=== PATIENT | male | born 1955 | race Caucasian/White ===

== ENCOUNTER 2025-04-19 22:03 | Emergency (ER) | payer MEDICARE, OTHER, SELFPAY ==
[2025-04-19 22:06] VITALS: BP 151/81
[2025-04-19 22:21] VITALS: BP 143/73
[2025-04-19 22:29] VITALS: BMI 27.6
[2025-04-19 22:29] LABS: Hematocrit 47.5 % (39.0-52.0); Hemoglobin 15.4 g/dL (13.0-18.0); Mean Corp Hgb Conc. 32.4 g/dL (33.0-37.0); Mean Corpuscular Volume 90.5 fL (80.0-94.0); Nucleated Red Blood Cells % 0 % (-); Platelet Count 344 10^3/uL (130-400); Red Cell Dist. Width 13.1 % (11.5-14.5)
--- NOTE | 2025-04-19 22:33 | EDRN ---
Pt went to bed and could feel his heart beating fast and felt it was skipping beats. Pt reports palpitations since he was a child but they are not regular. Pt with similar episode like tonight 1-2 years ago and did not seek evaluation. Pt says he
feels fine now but sometimes he feels his heart skips a beat. No recent medication change, increase alcohol or caffeine. Pt had a cup of coffee tonight which he does every Sunday. No cp, sob, abd pain, n/v, weakness, dizziness, fever/chills/cough.
[2025-04-19 22:43] LABS: ALT (SGPT) 21 U/L (0-50); AST (SGOT) 24 U/L (17-59); Albumin 4.4 g/dl (3.5-5.0); Alkaline Phosphatase 87 U/L (38-126); Blood Urea Nitrogen 26 mg/dl (9-20); Calcium 9.7 mg/dl (8.4-10.2); Carbon Dioxide 25 mmol/L (22-30); Chloride 104 mmol/L (98-107); Estimated Creatinine Clearance 70 ml/min; Glucose 117 mg/dl (70-99); Potassium 4.1 mmol/L (3.5-5.1); Sodium 134 mmol/L (135-145); Total Protein 7.2 g/dl (6.3-8.2); eGFR > 60.00
[2025-04-19 22:54] LABS: Troponin I < 0.012 ng/ml
[2025-04-19 23:00] VITALS: BP 128/73
--- NOTE | 2025-04-19 23:26 | ED.GENMED ---
History of Present Illness
General
Chief Complaint: Heart Rate Problem
Source: patient
Exam Limitations: none
Time Seen by Provider: 04/19/25 23:11
History of Present Illness
History of Present Illness:
See MDM
Past History
Past History
ED Past Medical History: HTN, Hypercholesterolemia and NIDDM
ED Past Surgical History: Orthopedic
Social History
Tobacco: Non-smoker
Phy Exam
Physical Exam
Physical Exam:
See MDM
Course
Orders/Labs/Results
Orders:
Orders
04/19/25 22:11
Electrocardiogram (*1) Urgent
Reason for Study: Chest Pain
Cardiac Monitoring- Treatment ONCE
EKG- Treatment ONCE
04/19/25 22:23
Complete Blood Count/With Diff Urgent
Comprehensive Metabolic Panel Urgent
Troponin I Urgent
Abnormal Lab Results
04/19/25
22:23
WBC 12.1 H 10^3/uL
(4.8-10.8)
MCHC 32.4 L g/dL
(33.0-37.0)
Abs Immat Gran (auto) 0.1 H 10^3/uL
(0-0.05)
Absolute Neuts (auto) 7.1 H 10^3/uL
(1.4-6.5)
Absolute Monos (auto) 1.3 H 10^3/uL
(0.1-0.6)
Monocytes % 10.5 H %
(1.7-9.3)
Sodium 134 L mmol/L
(135-145)
BUN 26 H mg/dl
(9-20)
Glucose 117 H mg/dl
(70-99)
04/19/25 22:23
04/19/25 22:23
Vital Signs
Initial and Last Documented VS:
Initial Vital Signs
Temp Pulse Resp BP Pulse Ox
97.7 F 98 20 151/81 99
04/19/25 22:06 04/19/25 22:06 04/19/25 22:06 04/19/25 22:06 04/19/25 22:06
Last Documented Vital Signs
Temp Pulse Resp BP Pulse Ox
97.7 F 88 17 128/73 97
04/19/25 22:06 04/19/25 23:00 04/19/25 23:00 04/19/25 23:00 04/19/25 23:00
MDM/Problems Addressed
Differential Diagnosis Includes:
Note:
CHIEF COMPLAINT(S)
Heart palpitations.
HISTORY OF PRESENT ILLNESS
The patient is a 69-year-old male with a history of diabetes, hypertension, and hypercholesterolemia on medication, who presents with heart palpitations. He reports experiencing irregular heartbeat sensations while lying in bed, with episodes
lasting for a few days. The patient has had similar episodes in the past, which have not been definitively diagnosed. He previously saw a transactional paralegal years ago for palpitations and had a cardiac catheterization in 1995, which revealed congenital
anatomical variations but was deemed normal. He currently denies any increased caffeine intake or use of new medications. While in the emergency department, the patient has returned to normal sinus rhythm, and his blood work and electrocardiogram
are normal. The provider discussed the potential presence of atrial fibrillation or premature ventricular contractions, with explanations about stroke risks associated with untreated atrial fibrillation.
PAST MEDICAL AND SURGICAL HISTORY
- Previous congenital heart defect diagnosed as benign.
- Diabetes, hypertension, hypercholesterolemia under medication.
- Cardiac catheterization in 1995.
PHYSICAL EXAM
General: Alert, no acute distress.
Skin: Warm, dry.
Head: Normocephalic, atraumatic
Neck: Appears supple, trachea midline.
Eyes, Ears, Nose, Mouth, and Throat: Moist mucous membranes
Cardiovascular: No signs of cyanosis. Regular rate and rhythm
Respiratory: Respirations are non-labored. Lungs clear
Abdomen: Non-distended
Musculoskeletal: No deformities. No leg edema
Neurological: No focal neurological deficit observed.
Psychiatric: Cooperative, appropriate mood and affect.
SUMMARY OF ENCOUNTER
The patient was seen for concerns of heart palpitations with a primary focus on determining the presence of atrial fibrillation or premature ventricular contractions. The evaluation showed normal lab work and electrocardiogram results. The
discussion included the concept of possible paroxysmal atrial fibrillation and the risks associated with uncontrolled atrial fibrillation. The patient was advised on monitoring options and follow-up plans with his primary care physician and possibly
a transactional paralegal for further evaluation with a Holter monitor.
FOLLOW-UP INSTRUCTIONS
The patient was advised to follow up with his primary care physician to discuss further evaluation with a Holter monitor. He was also given the contact information for a transactional paralegal should he require specialist evaluation.
PATIENT EDUCATION AND COUNSELING
The patient was educated on symptoms of atrial fibrillation, associated risks (especially stroke), and the importance of monitoring his symptoms. The potential need for anticoagulation was discussed, contingent upon further diagnostic confirmation.
He was informed about potential symptoms to report and was encouraged to seek medical evaluation in case of recurrent or persistent palpitations.
MEDICATION RECONCILIATION
No new medications were administered during this visit. The patient was advised of the potential need for anticoagulation therapy in the future if atrial fibrillation is confirmed.
MEDICAL DECISION MAKING
- Number and Complexity of Problems Addressed:
Chronic conditions affecting care: Diabetes, hypertension, hypercholesterolemia.
The Differential Diagnosis includes, in no particular order and is not limited to:
- Atrial fibrillation
- Premature ventricular contractions
- Paroxysmal atrial fibrillation
- Anxiety
- Arrhythmia
- Heart failure
- Valvular heart disease
- Myocardial ischemia
- Electrolyte imbalance
- Sinus tachycardia
- Data:
Category 1:
- My independent review of the EKG indicated normal sinus rhythm.
Category 3:
- The need for future discussions concerning Holter monitor and potential anticoagulation therapy with primary care and cardiology providers.
-Risk:
Prescription medication was considered, but ultimately not given after discussion with patient/family.
Consideration of Admission/Observation: Escalation of care including admission/observation was considered given the complexity and risk of the patients presenting complaint, exam findings, and/or their underlying comorbidities. However, ultimately I
feel the patient is safe for outpatient management with close follow-up. Reasoning: Work-up reassuring, does not reveal any acute life/organ threatening processes, patients symptoms well controlled upon reevaluation, reexamination is reassuring,
vitals are stable, patient agreeable with discharge, reliable for follow-up.
DIAGNOSIS
- Atrial fibrillation, paroxysmal (ICD-10: I48.0)
- Palpitations (ICD-10: R00.2)
- Congenital heart defect, benign (ICD-10: Q24.9)
EKG
My independent EKG interpretation is:
- Sinus rhythm
- Normal axis
- No ST elevation
- Intervals within normal limits
Disposition:
SUMMARY OF ENCOUNTER
The patient, a 69-year-old male with a history of diabetes, hypertension, and hypercholesterolemia, presented with intermittent heart palpitations. Concern was noted for potential undiagnosed atrial fibrillation based on his fluttering sensation.
Current workup including an EKG and blood work in the emergency department was negative. The patients troponin levels were normal, reducing the likelihood of acute coronary syndrome (ACS). The patient was symptom-free during the emergency department
visit. Outpatient follow-up with cardiology and primary care was discussed, including the potential use of a Holter monitor and significant return precautions.
PLAN
Discuss the potential use of a Holter monitor in the outpatient setting. Significant return precautions were explained to ensure the patient seeks medical help if symptoms recur.
INDEPENDENT REVIEW OF LABS AND INTERPRETATION OF TESTS
My independent review of the EKG is normal sinus rhythm.
My independent review of the blood work and troponin is negative for acute coronary syndrome.
PATIENT EDUCATION AND COUNSELING
The patient was educated on the importance of monitoring heart rhythm changes and seeking medical evaluation if recurrent or persistent palpitations occur. The potential need for anticoagulation was also discussed if atrial fibrillation is confirmed.
FOLLOW-UP INSTRUCTIONS
The patient should follow up with his primary care physician and transactional paralegal to discuss further evaluation, including a potential Holter monitor.
MEDICAL DECISION MAKING
- Number and Complexity of Problems Addressed: Chronic conditions affecting care: Diabetes, hypertension, hypercholesterolemia.
- Differential Diagnosis includes:
- Atrial fibrillation
- Premature ventricular contractions
- Paroxysmal atrial fibrillation
- Anxiety
- Arrhythmia
- Heart failure
- Valvular heart disease
- Myocardial ischemia
- Electrolyte imbalance
- Sinus tachycardia
- Data:
Category 1
- My independent review of EKG indicated normal sinus rhythm.
- Troponin levels were reviewed and found to be negative.
Category 3
- Discussed follow-up management with cardiology and primary care regarding potential Holter monitor.
DIAGNOSIS
- Atrial fibrillation, paroxysmal (ICD-10: I48.0)
- Palpitations (ICD-10: R00.2)
- Congenital heart defect, benign (ICD-10: Q24.9)
*Pulse Oximetry
SaO2: 97
Oxygen Mode of Delivery: Room air
ED Attending Note
-
Portions of this chart may have been created with voice recognition software.� Occasional wrong word or��sound alike� substitutions may have occurred due to the inherent limitations of voice recognition software.
Discharge Plan
Departure
Patient Disposition: Home (Routine Discharge)
Date of Disposition: 04/19/25
Time of Disposition: 23:26
Patient with high blood pressure during this ER visit?: No
Discharge Problem:
Heart palpitations
Instructions: Palpitations (DC)
Prescriptions:
No Action
metformin 500 mg Tablet
1,000 mg PO BID
atorvastatin 20 mg Tablet
20 mg PO HS
aspirin [Aspir-Low] 81 mg Tablet,Delayed Release (Dr/Ec)
81 mg PO DAILY
lisinopril 10 mg Tablet
10 mg PO DAILY
insulin glargine [Basaglar KwikPen U-100 Insulin] 100 unit/mL (3 mL) Insulin Pen
24 unit SC HS
Jardiance 25 mg Tablet
25 mg PO DAILY
Ozempic 0.25 mg or 0.5 mg (2 mg/3 mL) Pen Injector
0.5 mg SC QWEEK
Centrum Silver Tablet
1 tab PO DAILY
Referrals:
Vik Wallace MD [Active, Cardiology]
Bonilla Anthony MD [Family Provider, Family Practice]
Activity Restrictions/Additional Instructions:
Please return for any worsening symptoms.
You may return at any time if you have further concerns.
Please follow up with your doctor at the first available appointment, preferably this week. Please discuss your symptoms. They are concerning for undiagnosed A-fib. Please discuss obtaining an outpatient Holter monitor.
Thank you for choosing [facility].
Interventions
Interventions:
*Risk Screen - Suicide Last Done: 04/19/25 22:06
*General Assessment Last Done: 04/19/25 22:06
*Neglect/Abuse Screening Last Done: 04/19/25 22:06
*ED- Fall Risk Assessment Last Done: 04/19/25 22:29
*ED COVID-19 Vaccine History Last Done: 04/19/25 22:29
*ED Influenza Vaccine History Last Done: 04/19/25 22:29
ED- Cardiac Assessment Last Done: 04/19/25 22:41
ED- Pulmonary Assessment Last Done: 04/19/25 22:41
Discharge Date and Time
Print Language: OMANI
== END 2025-04-19 23:43 | disposition home or self-care (01) ==
LOC: EMR 22:03
PROVIDERS: Student in an Organized Health Care Education/Training Program; EMERGENCY PHYSICIAN Student in an Organized Health Care Education/Training Program; FAMILY PHYSICIAN Family Medicine
DX: R00.2 Palpitations (principal); I48.0 Paroxysmal atrial fibrillation; Q24.9 Congenital malformation of heart, unspecified; I10 Essential (primary) hypertension; E11.9 Type 2 diabetes mellitus without complications; E78.00 Pure hypercholesterolemia, unspecified; Z79.82 Long term (current) use of aspirin
CPT/HCPCS: 99283; 80053; 84484; 85025; 93005